=== PATIENT | male | born 1955 | race Caucasian/White ===

== ENCOUNTER 2017-03-08 11:02 | Outpatient (CLI) | payer BC ==
[2015-02-02 12:09] VITALS: BP 148/72
[2017-03-08 11:32] LABS: BASOPHILS % 0.4 (0.0-1.5); EOSINOPHILS % 4.1 % (0.0-6.8); MEAN CORPUSCULAR HEMOGLOBIN 32.9 pg (28.0-34.0); MEAN CORPUSCULAR VOLUME 99.9 fl (80.0-100.0); MONOCYTES % 6.3 % (0.0-11.0); NEUTROPHILS # 5.4 # k/uL (1.4-7.7)
[2017-03-08 11:51] LABS: eGFR (African) > 60; eGFR (Non-African) > 60
== END 2017-03-08 11:03 ==
LOC: LAB 11:02
PROVIDERS: ATTEND Family Medicine
DX: I10 Essential (primary) hypertension (principal); E78.00 Pure hypercholesterolemia, unspecified
CPT/HCPCS: 36415; 80053; 80061; 85025

== ENCOUNTER 2017-04-16 17:13 | Outpatient (CLI) | payer BC ==
[2015-02-02 12:09] VITALS: BP 148/72
[2017-04-16 17:59] LABS: eGFR (African) > 60; eGFR (Non-African) > 60
--- NOTE | 2017-04-17 07:08 | Diagnostic Imaging Report ---
CONSUELO WEBSTER [facility] [id number] [facility] [address] [address] Report Submission Date: Apr 16, 2017 6:05:45 PM CDT Patient Study Name: ISAIAS CARLOS Date: Apr 16, 2017 5:36:26 PM CDT Modality Type: CR Gender: M Description: CHEST : 57 Institution: [facility] Physician: CONSUELO WEBSTER Examination: PA lateral chest History: Dyspnea Comparison exams: None available Findings: PA and lateral view the chest demonstrates a cardiac silhouette upper limits normal. Tortuosity of the thoracic aorta. Fullness involving the right hilum. No peripheral consolidation. No blunting of the costophrenic margins. Osseous structures are appopriate for age. Impression: Right hilar fullness: vasculature versus infiltrate versus parenchymal lesion. Correlate with previous examinations if available. If does not resolve after therapy, CT chest may be appropriate. Electronically signed on Apr 16, 2017 6:05:45 PM CDT by: Geovanni OWUSU
== END 2017-04-16 17:14 ==
LOC: RAD 17:13
PROVIDERS: ATTEND Family Medicine
DX: R06.09 Other forms of dyspnea (principal); R07.89 Other chest pain; I10 Essential (primary) hypertension
CPT/HCPCS: 36415; 71020; 80048; 83880; 84484

== ENCOUNTER 2017-04-20 15:24 | Outpatient (CLI) | payer BC ==
[2015-02-02 12:09] VITALS: BP 148/72
== END 2017-04-20 15:25 ==
LOC: CARD 15:24
PROVIDERS: ATTEND Internal Medicine Cardiovascular Disease
DX: I35.0 Nonrheumatic aortic (valve) stenosis (principal); I42.8 Other cardiomyopathies; I50.9 Heart failure, unspecified; I10 Essential (primary) hypertension
CPT/HCPCS: G0463

== ENCOUNTER 2017-05-04 11:54 | Outpatient (CLI) | payer BC ==
[2015-02-02 12:09] VITALS: BP 148/72
== END 2017-05-04 11:55 ==
LOC: CARD 11:54
PROVIDERS: ATTEND Internal Medicine Cardiovascular Disease
DX: I35.0 Nonrheumatic aortic (valve) stenosis (principal)
CPT/HCPCS: 99213

== ENCOUNTER 2017-06-08 10:55 | Outpatient (CLI) | payer BC ==
[2015-02-02 12:09] VITALS: BP 148/72
== END 2017-06-08 10:56 ==
LOC: CARD 10:55
PROVIDERS: ATTEND Internal Medicine Cardiovascular Disease
DX: I35.0 Nonrheumatic aortic (valve) stenosis (principal)
CPT/HCPCS: 99213

== ENCOUNTER 2017-08-31 11:32 | Outpatient (CLI) | payer BC ==
[2015-02-02 12:09] VITALS: BP 148/72
== END 2017-08-31 11:40 ==
LOC: CARD 11:32
PROVIDERS: ATTEND Internal Medicine Cardiovascular Disease
DX: I35.0 Nonrheumatic aortic (valve) stenosis (principal); I50.9 Heart failure, unspecified; R05 Cough
CPT/HCPCS: 99213

== ENCOUNTER 2017-08-31 12:54 | Outpatient (CLI) | payer BC ==
[2015-02-02 12:09] VITALS: BP 148/72
--- NOTE | 2017-08-31 15:46 | Diagnostic Imaging Report ---
NILAM MANCINI [facility] [address] [facility] [address] Report Submission Date: Aug 31, 2017 1:49:14 PM CDT Patient Study Name: ISAIAS CARLOS Date: Aug 31, 2017 1:03:59 PM CDT Modality Type: CR Gender: M Description: CHEST : 57 Institution: [facility] Physician: NILAM MANCINI Examination: PA and lateral chest. History: Evaluate lung schrader. Comparison exam: 16 April 2017 Findings: PA lateral chest demonstrate a prominent cardiac and mediastinal silhouette. Tortuosity of the thoracic aorta. Stable fullness involving the right hilum and inferior lung region. Hilar granuloma. Stable blunting of the posterior sulci. Osseous structures are appropriate for age. Impression: Stable hilar fullness and granuloma. No new/acute pulmonary process. Electronically signed on Aug 31, 2017 1:49:14 PM CDT by: Geovanni OWUSU
== END 2017-08-31 13:00 ==
LOC: RAD 12:54
PROVIDERS: ATTEND Internal Medicine Cardiovascular Disease
DX: R05 Cough (principal)
CPT/HCPCS: 71020

== ENCOUNTER 2017-11-23 12:33 | Outpatient (CLI) | payer BC ==
[2015-02-02 12:09] VITALS: BP 148/72
== END 2017-11-23 12:34 ==
LOC: CARD 12:33
PROVIDERS: ATTEND Internal Medicine Cardiovascular Disease
DX: I35.0 Nonrheumatic aortic (valve) stenosis (principal); I42.9 Cardiomyopathy, unspecified; I10 Essential (primary) hypertension; J44.9 Chronic obstructive pulmonary disease, unspecified; Z72.0 Tobacco use; I35.9 Nonrheumatic aortic valve disorder, unspecified
CPT/HCPCS: 99213

== ENCOUNTER 2017-11-23 14:43 | Outpatient (CLI) | payer BC ==
[2015-02-02 12:09] VITALS: BP 148/72
== END 2017-11-23 14:44 ==
LOC: LAB 14:43
PROVIDERS: ATTEND Internal Medicine Cardiovascular Disease
DX: I35.0 Nonrheumatic aortic (valve) stenosis (principal)
CPT/HCPCS: 87040

== ENCOUNTER 2018-01-25 12:53 | Outpatient (CLI) | payer BC ==
[2015-02-02 12:09] VITALS: BP 148/72
== END 2018-01-25 12:54 ==
LOC: CARD 12:53
PROVIDERS: ATTEND Internal Medicine Cardiovascular Disease
DX: Z95.2 Presence of prosthetic heart valve (principal); I42.9 Cardiomyopathy, unspecified; I10 Essential (primary) hypertension; J44.9 Chronic obstructive pulmonary disease, unspecified; Z72.0 Tobacco use; I27.0 Primary pulmonary hypertension
CPT/HCPCS: 99213

== ENCOUNTER 2019-09-29 13:32 | Outpatient (CLI) | payer BC ==
[2015-02-02 12:09] VITALS: BP 148/72
[2019-09-29 14:07] LABS: BASOPHILS % 0.3 % (0.0-1.5)
[2019-09-29 14:25] LABS: eGFR (Non-African) > 60
--- NOTE | 2019-09-29 14:40 | Diagnostic Imaging Report ---
PATIENT MR#: [id number] PATIENT PATIENT NAME: ISAIAS CARLOS DATE OF : 1955 REFERRING PHYSICIAN: Reji Correa EXAM DATE: 09/29/2019 ACCESSION NUMBER: [id number] EXAM DESCRIPTION: US U OR L EXT VEINS UNILAT EXAMINATION: US U OR L EXT VEINS UNILAT HISTORY: REASON: RIGHT LEG PAIN AND SWELLING HISTORY: NOTICED TIGHTNESS X3 DAYS AGO WHEN PUTTING ON B OOT. FOOT AND LEG Note time : 09/29/2019 2:30:05 PM User : Bethany thayer REASON: RIGHT LEG PAIN AND SWELLING HISTORY: NOTICED TIGHTNESS X3 DAYS AGO WHEN PUTTING ON BOOT. FOOT AND LEG ASTER NUES TO SWELL TO ABOUT THE KNEE REGION NO EVIDENCE OF DVT (DICOM Hx ) / ITS.REASON COMPARISON: None FINDINGS: The visible veins of the right lower extremity demonstrate normal compressibility, augmentation, and Doppler color flow without evidence of intravascular echogenicity. IMPRESSION: No evidence of right lower extremity deep vein thrombosis. Read by: Son Olvera Transcribed by: Transcribed Date: Electronically signed by: Son Olvera Date signed: 09/29/2019 2:39:04 PM
--- NOTE | 2019-09-29 14:52 | Diagnostic Imaging Report ---
PATIENT MR#: [id number] PATIENT PATIENT NAME: ISAIAS CARLOS DATE OF : 1955 REFERRING PHYSICIAN: Reji Correa EXAM DATE: 09/29/2019 ACCESSION NUMBER: [id number] EXAM DESCRIPTION: CHEST 2VIEW EXAMINATION: CHEST 2VIEW HISTORY: PT STATES RT LEG SWELLING, WEIGHT GAIN, SMOKER PRIOR CXR TAKEN ON 08/31/2017 AND 04/16/2017 HX OF AORTA VALVE REPLACEMENT. (Hx) / Note time : 09/29/2019 2:43:18 PM User : Bethany Bledsoe PT STATES RT LEG SWELLING, WEIGHT GAIN, SMOKER PRIOR CXR TAKEN ON 08/31/2017 AND 04/16/2017 H X OF AORTA VALVE (DICOM Hx) COMPARISON: None FINDINGS: Median sternotomy wires and an aortic valve prosthesisare present. The pulmonary vasculature is at th e upper limit of normal. There is no focal consolidation, pleural effusion, or pneumothorax. The heart size is normal. Left hilar calcified lymph nodes are indicative of a prior healed granulomatous disease. The visible bony thorax is intact. IMPRESSION: No acute pulmonary process. Read by: Son Olvera Transcribed by: Transcribed Date: Electronically signed by: Son Olvera Date signed: 09/29/2019 2:52:04 PM
== END 2019-09-29 13:42 ==
LOC: RAD 13:32
PROVIDERS: ATTEND Family Medicine
DX: I11.0 Hypertensive heart disease with heart failure (principal); I50.22 Chronic systolic (congestive) heart failure; M79.89 Other specified soft tissue disorders
CPT/HCPCS: 36415; 71046; 80053; 85025; 93971

== ENCOUNTER 2019-10-09 14:25 | Outpatient (CLI) | payer BC ==
[2015-02-02 12:09] VITALS: BP 148/72
[2019-10-09 14:59] LABS: eGFR (Non-African) > 60
== END 2019-10-09 14:30 ==
LOC: LAB 14:25
PROVIDERS: ATTEND Family Medicine
DX: I10 Essential (primary) hypertension (principal)
CPT/HCPCS: 36415; 80048